=== PATIENT | male | born 1970 | race Two or more races ===

== ENCOUNTER 2024-04-22 08:20 | Outpatient (CLI) | payer OTHER, SELFPAY ==
[2024-04-22 09:30] LABS: Partial Thromboplastin Time 24.1 Seconds (22.3-36.8)
[2024-04-22 09:39] LABS: INR 0.9; Prothrombin Time 12.6 Seconds (11.1-14.7)
[2024-04-22 09:43] LABS: Anion Gap 5 mmol/L (4-12); Blood Urea Nitrogen 15 mg/dL (9-20); Calcium 8.9 mg/dL (8.4-10.2); Carbon Dioxide 28 mmol/L (22-30); Chloride 105 mmol/L (98-107); Estimated Glomerular Filt Rate > 60; Glucose 85 mg/dL (65-110); Potassium 4.2 mmol/L (3.4-5.0); Sodium 138 mmol/L (137-145)
== END 2024-04-22 08:21 | disposition home or self-care (01) ==
LOC: ANHSURGERY 08:26
PROVIDERS: Anesthesiology; PCP Family Medicine; Visit Provider Urology
DX: R97.20 Elevated prostate specific antigen [PSA] (principal); N18.9 Chronic kidney disease, unspecified; E11.22 Type 2 diabetes mellitus with diabetic chronic kidney disease
CPT/HCPCS: 36415; 80048; 85610; 85730; 87086

== ENCOUNTER 2024-04-27 00:24 | Day surgery (SDC) | payer OTHER, SELFPAY ==
[2024-04-19 15:26] VITALS: BMI 24.4
--- NOTE | 2024-04-19 15:27 | PC.NURSE ---
Report to the Outpatient Waiting Room, entrance under the green pavilion located off [facility], at time _0900_ on date _[id number]_. Planned Procedure Time: _1100_.? Time changes happen often and if your time is changed the preop area will call you the afternoon before. - You and your visitor will be asked to self-screen and do not enter if you have any COVID symptoms. Please call surgeon if you need to reschedule. - A mask is optional within the hospital at this time. Patients may have clear liquids (water, carbonated beverages, clear teas, apple juice) until 3 hours prior to surgery with a maximum of 20 ounces. - No food from midnight until time of surgery and no smoking Take only the following medications with a SIP of water on the morning of surgery: ___Amlodipine DO NOT STOP ANY OF YOUR OTHER PRESCRIPTION MEDICATIONS PRIOR TO SURGERY EXCEPT THE FOLLOWING Medications to discontinue per physician ___None Please no make-up, nail pakistani, hairspray, perfume, deodorant, or body powder the day of surgery.? No jewelry (including any body piercings) or valuables the day of surgery, leave them at home.? Please take a shower or bath the night before, or the morning of, surgery with an antibacterial soap.? Wear comfortable, loose fitting clothing.? - Jewelry must be removed prior to entering the operating room.? Rings and piercings that are not removed may be cut off. - The hospital will not accept responsibility for valuables.? - Please leave all valuables, including medications, at home the day of surgery. If you are going home after surgery, a licensed goat driver must drive you home.? - NO public transportation without another adult if you receive anesthesia. - We recommend that an adult stay with you for 24 hours following discharge. - We also recommend that you do not drive, make important decision, drink alcoholic beverages, or take any drugs that were not prescribed by your health care provider for at least 24 hours after your discharge time. Follow any additional instructions given to you from your surgeon. Telephone instructions given to _Vikas__and asked if any additional questions and then verbalized understanding. Patient advised to call surgeon office or pre surgery nurse liaison [phone] if any additional questions.
--- NOTE | 2024-04-26 16:16 | P.PNAN_ITS ---
Anes - Initial Pre Proc Eval Procedure: Operation Date: 04/27/24 11:00 Proposed Procedures p Trans Rectal Ultrasound Fusion Guided Prostate Biopsy - Cristhian Corona MD Date/Time: 04/26/24 16:16 Surgeon: Cristhian Corona MD Pre Op Diagnosis: elevated PSA Patient Data Age: 54 Gender: M Height: 1.75 m Weight: 75 kg Allergies Allergy/AdvReac Type Severity Reaction Status Date / Time No Known Allergies Allergy Verified 04/19/24 15:13 Home Medications Medication Instructions Recorded Confirmed Type allopurinol 100 mg tablet 100 mg PO DAILY 04/19/24 04/19/24 History amlodipine 5 mg tablet 5 mg PO DAILY 04/19/24 04/19/24 History empagliflozin 25 mg tablet 25 mg PO DAILY 04/19/24 04/19/24 History (Jardiance) lisinopril 40 mg tablet 40 mg PO DAILY 04/19/24 04/19/24 History metformin 500 mg tablet 500 mg PO BID 04/19/24 04/19/24 History rosuvastatin 10 mg tablet 10 mg PO DAILY 04/19/24 04/19/24 History tadalafil 5 mg tablet 5 mg PO DAILY 04/19/24 04/19/24 History tamsulosin 0.4 mg capsule 0.4 mg PO DAILY 04/19/24 04/19/24 History tirzepatide 7.5 mg/0.5 mL 7.5 mg subcut WEEKLY 04/19/24 04/19/24 History subcutaneous pen injector (Mounjaro) Patient hx anesthesia problems: none Family hx anesthesia problems: none Results Review: All pre-operative results and documents have been reviewed as part of the pre- operative evaluation. [facility] Social History Social History Smoking status: Never smoker Alcohol intake: current Drinks per week: 1 Living arrangements: with family Spiritual care concerns: No Anes - Eval Final PreProcedure Day of Procedure 04/26/24 16:16 Patient weight: normal ASA classification: III Emergent: no Anesthetic plan: proceed Anesthesia type and monitoring: general GIVS and standard monitoring Results Review: All pre-operative results and documents have been reviewed as part of the pre- operative evaluation. Informed Consent: The patient's anesthetic plan and its attendant risks and benefits were discussed with the patient/family/POA. Questions were solicited and answers provided to the satisfaction of the patient/family/POA.
[2024-04-27] MEDS: LACTATED RINGERS 1,000 ML 30 ML IV CONT (09:30)
[2024-04-27 09:45] VITALS: BP 136/80; PULSE 75; RESP 16; TEMP 36.6; O2SAT 100
[2024-04-27 09:47] LABS: Glucose Point of Care 114 mg/dl (65-105)
--- NOTE | 2024-04-27 10:46 | WPDHPUPDATE1 ---
History and Physical Update Update Date/Time: 04/27/24 10:46 History and Physical has been reviewed, including an updated exam of the patient. There are NO changes in the patient's condition. Risks, benefits, and alternatives have been discussed and questions answered. Patient agrees to proceed with procedure. Proceed with uronav us and prostate biopsy
--- NOTE | 2024-04-27 10:53 | SUR.PREOP ---
PT AND SPOUSE MADE AWARE OF SURGERY DELAY BY ABOUT 1HR. COMFORT MEASURES GIVEN.
--- NOTE | 2024-04-27 11:36 | WPDANESEPPF ---
Anes - Initial Pre Proc Eval Procedure: Operation Date: 04/27/24 11:00 Proposed Procedures p Trans Rectal Ultrasound Fusion Guided Prostate Biopsy - Cristhian Corona MD Date/Time: 04/27/24 11:36 Surgeon: Cristhian Corona MD Pre Op Diagnosis: elevated PSA Patient Data Age: 54 Gender: M Height: 1.75 m Weight: 76.1 kg Last Vital Signs Temp 97.8 F 04/27/24 09:45 Pulse 75 04/27/24 09:45 Resp 16 04/27/24 09:45 BP 136/80 04/27/24 09:45 Pulse Ox 100 04/27/24 09:45 O2 Del Method Room Air 04/27/24 09:45 Allergies Allergy/AdvReac Type Severity Reaction Status Date / Time No Known Allergies Allergy Verified 04/27/24 09:53 Home Medications Medication Instructions Recorded Confirmed Type allopurinol 100 mg tablet 100 mg PO DAILY 04/19/24 04/27/24 History amlodipine 5 mg tablet 5 mg PO DAILY 04/19/24 04/27/24 History empagliflozin 25 mg tablet 25 mg PO DAILY 04/19/24 04/27/24 History (Jardiance) lisinopril 40 mg tablet 40 mg PO DAILY 04/19/24 04/27/24 History metformin 500 mg tablet 500 mg PO BID 04/19/24 04/27/24 History rosuvastatin 10 mg tablet 10 mg PO DAILY 04/19/24 04/27/24 History tadalafil 5 mg tablet 5 mg PO DAILY 04/19/24 04/27/24 History tamsulosin 0.4 mg capsule 0.4 mg PO DAILY 04/19/24 04/27/24 History tirzepatide 7.5 mg/0.5 mL 7.5 mg subcut WEEKLY 04/19/24 04/27/24 History subcutaneous pen injector (Mounjaro) Laboratory Tests 04/27/24 09:36 POC Capillary Glucose 114 H mg/dl (65-105) Patient hx anesthesia problems: none Family hx anesthesia problems: none Results Review: All pre-operative results and documents have been reviewed as part of the pre-operative evaluation. [facility] Social History Social History Smoking status: Never smoker Alcohol intake: current Drinks per week: 1 Living arrangements: with family Spiritual care concerns: No Anes - Eval Final PreProcedure Day of Procedure 04/27/24 11:36 Patient weight: normal Heart: regular rate and rhythm Lungs: clear to auscultation Airway: Mallampati scale class 1 Neurological: alert and oriented Last oral intake: >/= 8 hours ASA classification: III Emergent: no Anesthetic plan: proceed Anesthesia type and monitoring: general LMA and standard monitoring Results Review: All pre-operative results and documents have been reviewed as part of the pre-operative evaluation. HTN, hyperlipidemia, DM, off mounjaro 5 days). Very active w walking, yoga, no cp or sob. Informed Consent: The patient's anesthetic plan and its attendant risks and benefits were discussed with the patient/family/POA. Questions were solicited and answers provided to the satisfaction of the patient/family/POA.
[2024-04-27] MEDS: ceFAZolin 2 GM/D5W 50 ML 2 GM/50 ML BAG IVPB (12:01)
--- NOTE | 2024-04-27 12:21 | P.OP_ITS ---
Procedure Note - Detailed Date of Procedure 04/27/24 Pre-op Diagnosis elevated PSA Post-op Diagnosis Same Procedure Performed uronav us and prostate biopsy Surgeon Cristhian Corona MD Anesthesia General Description of Procedure The patient was taken to the operative suite correctly identified. Once anesthe malcolm was obtained he was placed in lateral decubitus position prepped and draped usual sterile fashion. Transrectal ultrasound probe was inserted. Prostate was imaged and the MRI images fused to the ultrasound. He had 2 regions of interest. Took 3 pieces of tissue from each. I then did my standard 12 core biopsy. Patient tolerated procedure well without any complications and was taken recovery stable condition. He will call for path results in 1 week. This completes dictation. Please send a copy of op note to my office. Estimated Blood Loss 0 Drains No Packing No Pathology Yes Complications No immediate complications Condition Stable Disposition PACU
[2024-04-27 12:24] VITALS: BP 95/56; PULSE 73; RESP 16
[2024-04-27 12:28] LABS: Glucose Point of Care 92 mg/dl (65-105)
[2024-04-27 12:50] VITALS: BP 102/60; PULSE 69
[2024-04-27 13:20] VITALS: BP 112/68; PULSE 76
[2024-04-27 13:40] VITALS: BP 116/78; PULSE 66; RESP 16
== END 2024-04-27 13:42 | disposition home or self-care (01) ==
PROVIDERS: PCP Family Medicine; Visit Provider Urology
PROC: (CPT 55700; principal; 2024-04-27 11:00)
DX: R97.20 Elevated prostate specific antigen [PSA] (principal); N32.81 Overactive bladder; R35.0 Frequency of micturition; R35.1 Nocturia; R39.15 Urgency of urination; I12.9 Hypertensive chronic kidney disease with stage 1 through stage 4 chronic kidney disease, or unspecified chronic kidney disease; E11.22 Type 2 diabetes mellitus with diabetic chronic kidney disease; N18.2 Chronic kidney disease, stage 2 (mild); E78.2 Mixed hyperlipidemia; K21.9 Gastro-esophageal reflux disease without esophagitis; N40.0 Benign prostatic hyperplasia without lower urinary tract symptoms; Z79.4 Long term (current) use of insulin; Z79.85 Long-term (current) use of injectable non-insulin antidiabetic drugs; Z79.84 Long term (current) use of oral hypoglycemic drugs; Z98.890 Other specified postprocedural states
CPT/HCPCS: 76872; 55700; 82948; G0416; J0690; J1100; J2003; J2250; J2405; J2704; J3010; J7120